=== PATIENT | female | born 1990 ===

== ENCOUNTER 2018-02-27 10:39 | Outpatient (CLI) | payer OTHER | END 2018-02-27 11:08 | disposition home or self-care (01) | LOC: MAMO-SONO 10:39 | DX: E04.1 Nontoxic single thyroid nodule (principal); R05 Cough; R10.2 Pelvic and perineal pain ==

== ENCOUNTER 2021-09-11 13:30 | Emergency (ER) | payer OTHER ==
[~2021-09-11] VITALS: Ht 154.9 cm; Wt 82.1 kg
[2021-09-11] MEDS ORDERED: ZOFRAN8 MG PO (17:27)
== END 2021-09-11 18:04 | disposition home or self-care (01) ==
LOC: ER 13:30 → EDBD 13:35 → ER 13:35
DX: O21.0 Mild hyperemesis gravidarum (principal); Z3A.09 9 weeks gestation of pregnancy

== ENCOUNTER 2021-10-09 09:46 | Emergency (ER) | payer OTHER ==
[~2021-10-09] VITALS: Ht 154.9 cm; Wt 82.1 kg
[~2021-10-09 09:46] MED LIST: ZOFRAN8 MG PO
== END 2021-10-09 15:17 | disposition home or self-care (01) ==
LOC: ER 09:46
DX: O20.9 Hemorrhage in early pregnancy, unspecified (principal); Z3A.14 14 weeks gestation of pregnancy

== ENCOUNTER 2021-12-30 10:35 | Outpatient (CLI) | payer OTHER | END 2021-12-30 12:35 | disposition home or self-care (01) | LOC: PRENATAL 10:35 | PROVIDERS: ATTEND Obstetrics & Gynecology Maternal & Fetal Medicine | DX: O26.849 Uterine size-date discrepancy, unspecified trimester (principal); O30.90 Multiple gestation, unspecified, unspecified trimester; Z3A.26 26 weeks gestation of pregnancy ==

== ENCOUNTER 2022-03-05 08:05 | Outpatient (CLI) | payer OTHER | END 2022-03-05 09:25 | disposition home or self-care (01) | LOC: PRENATAL 08:05 | PROVIDERS: ATTEND Obstetrics & Gynecology Maternal & Fetal Medicine | DX: O26.849 Uterine size-date discrepancy, unspecified trimester (principal); O30.90 Multiple gestation, unspecified, unspecified trimester; Z3A.35 35 weeks gestation of pregnancy ==

== ENCOUNTER 2022-03-15 08:45 | Inpatient (IN) | payer OTHER ==
[~2022-03-15] VITALS: Ht 154.9 cm; Wt 2.7 kg
[2022-03-15] MEDS ORDERED: PRENAT PO (11:00)
[2022-03-16] MEDS ORDERED: PRENATABS RX T1 EACH PO (07:40)
[2022-03-16] MEDS ORDERED: FOLIC ACID0.8 M1 PO (07:40)
[2022-03-16] MEDS ORDERED: IRON325 MG PO (07:40)
[2022-03-16] MEDS ORDERED: AMPICILLIN SOD500 MG PO (07:41)
[2022-03-19] MEDS ORDERED: COLACE100 MG PO (07:50)
[2022-03-19] MEDS ORDERED: IBUPROFEN800 MG PO (07:50)
== END 2022-03-19 13:33 | disposition home or self-care (01) | DRG 788 ==
LOC: EDSTATUS 08:45 → OB/GYN 03-16 07:08 → LDR 03-16 07:08 → O/R 03-16 10:07 → OB/GYN 03-16 10:50
PROVIDERS: ADMIT Specialist; ATTEND Specialist
PROC: 4A1HXCZ Monitoring of Products of Conception, Cardiac Rate, External Approach (ICD-10-PCS; 2022-03-16)
PROC: 10D00Z1 Extraction of Products of Conception, Low, Open Approach (ICD-10-PCS; principal; 2022-03-16 08:00)
DX: O32.2XX2 Maternal care for transverse and oblique lie, fetus 2 (principal); O30.033 Twin pregnancy, monochorionic/diamniotic, third trimester; Z3A.37 37 weeks gestation of pregnancy; Z37.2 Twins, both liveborn; Z20.822 Contact with and (suspected) exposure to COVID-19